=== PATIENT | female | born 2005 | race Caucasian/White ===

== ENCOUNTER 2024-03-20 16:26 | Emergency (ER) | payer MEDICAID, SELFPAY ==
[2024-03-20 16:31] VITALS: PULSE 110; RESP 16; TEMP 36.2; O2SAT 98
--- NOTE | 2024-03-20 19:32 | W.ED.GENAD ---
Discharge Plan Disposition Patient Disposition: Home Condition: Stable Discharge Details Clinical Impression: Complication, postoperative infection Primary Care Provider: Rayna,Local ED Provider: William Deleon Home Meds and New Rx's Prescriptions: New clindamycin HCl 150 mg capsule 450 mg PO TID 7 Days Qty: 63 0RF sulfamethoxazole-trimethoprim [Bactrim DS] 800-160 mg tablet 1 tab PO BID Qty: 14 0RF Continued levetiracetam [Keppra] 750 mg tablet 750 mg PO Q12H Discharge Instructions Additional Instructions: follow up as scheduled with your surgeon if you feel more ill or have new symptoms such as high fevers return to the emergency department HPI General Mode of arrival: ambulatory. Date/Time Provider Initiated Documentation: 03/20/24 16:29. Limitations to Documentation: no limitations. Information obtained by: patient. History of Present Illness 18 year old F presents to the emergency department with the chief complaint of right breast drainage, described as moderate, Patient started experiencing this week(s) (1) and it has been constant. No relieving factors improve symptom(s), No exacerbating factors reported . Patient notes no other symptoms.. Patient did receive the following treatments prior to arrival, none Related Data Home Medications ?Medication ?Instructions ?Recorded ?Confirmed clindamycin HCl 150 mg capsule 450 mg (3 x 150 mg) PO TID 7 days 03/20/24 #63 caps levetiracetam 750 mg tablet 750 mg PO Q12H 03/20/24 03/20/24 (Keppra) sulfamethoxazole 800 1 tab PO BID #14 tabs 03/20/24 mg-trimethoprim 160 mg tablet (Bactrim DS) Previous Rx's ?Medication ?Instructions ?Recorded clindamycin HCl 150 mg capsule 450 mg (3 x 150 mg) PO TID 7 days 03/20/24 #63 caps sulfamethoxazole 800 1 tab PO BID #14 tabs 03/20/24 mg-trimethoprim 160 mg tablet (Bactrim DS) Allergies Allergy/AdvReac Type Severity Reaction Status Date / Time Penicillins Allergy Severe Anaphylaxis Verified 03/20/24 16:38 General Stated Complaint: SurgicalRecheck ANASTACIA: 3 Review of Systems All systems reviewed & are unremarkable except as noted in HPI and below Constitutional Constitutional: Denies chills, Denies fever(s) and Denies weakness Cardiovascular Cardiovascular: Denies chest pain and Denies dyspnea Respiratory Respiratory: Denies cough and Denies dyspnea Gastrointestinal Gastrointestinal: Denies abdominal pain, Denies nausea and Denies vomiting Musculoskeletal Musculoskeletal: Denies joint swelling Integumentary/Breasts Skin/Breast: Reports erythema Neurologic Neurologic: Denies weakness Exam Const General: no acute distress Orientation: alert HENMT Head: normal to inspection Ears: external ears normal General nose exam: external nose normal Mouth: moist mucous membranes Eyes General: appearance normal, both eyes and all related structures Neck Neck: normal visual inspection Resp Effort & Inspection: normal respiratory effort and able to speak in complete sentences Cardio Rate: regular rate Neuro General: patient alert and patient oriented x3 Extrem General: normal to inspection Psych Mental Status: mental status grossly normal Course Vital Signs Vital signs: Vital Signs Temperature 36.2 C L 03/20/24 16:31 Pulse 110 H 03/20/24 16:31 Respiratory Rate 16 03/20/24 16:31 Pulse Oximetry 98 03/20/24 16:31 Temperature 36.2 C L 03/20/24 16:31 Pulse 110 H 03/20/24 16:31 Respiratory Rate 16 03/20/24 16:31 Respiratory Effort Normal 03/20/24 16:36 Pulse Oximetry 98 03/20/24 16:31 Pain Level 0 03/20/24 16:31 Medical Decision Making 89-year-old female who underwent a breast reduction surgery in [facility] where she resides comes in with drainage and redness of the right breast. She says that she was put on Bactrim a week ago and despite this still has redness drainage. She denies any fevers or severe pain. He was nursing bunk house worker Jonnie Hernández to do a breast exam in her right breast does have erythema of the anterior one third of it with some mild yellowish drainage out of the wound. There is no fluctuance to suggest underlying abscess. No crepitus expressed neck Fash. Left breast is normal. I suspect wound infection, she has been on Bactrim, will add strep coverage unfortunately she has a penicillin allergy so we will cover with clindamycin. She has follow-up Friday with her surgeon return precautions given Differential Diagnosis Differential Diagnosis: abscess, wound infection Quality:SDOH Health Related Social Needs: No Data to Display PFSH All Active Problems (Updated 03/20/24 @ 19:39 by William Deleon MD) Complication, postoperative infection (Acute) Social History Smoking/Tobacco Use Status: Never Smoking risk assessment performed?: Yes Alcohol Intake: current Alcohol Intake frequency: a few times a month Alcohol type: wine Drug use: Never Substance use type: does not use Do you feel safe at home: Yes Do you feel safe in your relationship?: Yes
[2024-03-20 19:49] VITALS: BP 150/88; PULSE 86; RESP 18; O2SAT 100
[2024-03-20] MEDS: Clindamycin 150 MG CAP 450 MG PO (19:51)
== END 2024-03-20 19:51 | disposition home or self-care (01) ==
PROVIDERS: Emergency Provider Emergency Medicine
DX: T81.41XA Infection following a procedure, superficial incisional surgical site, initial encounter (principal)
CPT/HCPCS: 99283